=== PATIENT | female | born 1950 | race Caucasian/White ===

== ENCOUNTER → 2018-02-27 | Outpatient (CLI) | payer MEDICARE ==
[~2018-02-27] MED LIST: IOPAMIDOL-370 75 ML VIAL IV ONE
== END | disposition home or self-care (01) ==
LOC: OIH 08:13
PROVIDERS: ATTEND Internal Medicine
DX: R10.31 Right lower quadrant pain (principal); R10.32 Left lower quadrant pain
CPT/HCPCS: 74178; Q9967

== ENCOUNTER → 2018-07-07 | Outpatient (CLI) | payer MEDICARE | END | disposition home or self-care (01) | LOC: RAH 13:03 | PROVIDERS: ATTEND Internal Medicine | DX: Z12.31 Encounter for screening mammogram for malignant neoplasm of breast (principal) | CPT/HCPCS: 77067 ==

== ENCOUNTER → 2018-12-28 | Outpatient (CLI) | payer MEDICARE | END | disposition home or self-care (01) | LOC: RAH 16:24 | PROVIDERS: ATTEND Internal Medicine | DX: M47.816 Spondylosis without myelopathy or radiculopathy, lumbar region (principal); R10.2 Pelvic and perineal pain | CPT/HCPCS: 72100; 72170 ==

== ENCOUNTER → 2019-07-27 | Outpatient (CLI) | payer MEDICARE | END | disposition home or self-care (01) | LOC: RAH 14:47 | PROVIDERS: ATTEND Internal Medicine | DX: Z12.31 Encounter for screening mammogram for malignant neoplasm of breast (principal) | CPT/HCPCS: 77067 ==

== ENCOUNTER → 2019-07-30 | Outpatient (CLI) | payer MEDICARE ==
[~2019-07-30] MED LIST changes: +IOHEXOL-350 50ML VIAL IV ONE; -IOPAMIDOL-370 75 ML VIAL IV ONE
== END | disposition home or self-care (01) ==
LOC: RAH 12:48
PROVIDERS: ATTEND Internal Medicine
DX: J44.9 Chronic obstructive pulmonary disease, unspecified (principal)
CPT/HCPCS: 71260; Q9967

== ENCOUNTER → 2020-08-01 | Outpatient (CLI) | payer MEDICARE | END | disposition home or self-care (01) | LOC: RAH 07-28 13:14 | PROVIDERS: ATTEND Internal Medicine | DX: I25.10 Atherosclerotic heart disease of native coronary artery without angina pectoris (principal); J43.9 Emphysema, unspecified; R91.1 Solitary pulmonary nodule | CPT/HCPCS: 71270; Q9967 ==

== ENCOUNTER → 2020-08-13 | Outpatient (CLI) | payer MEDICARE | END | disposition home or self-care (01) | LOC: RAH 13:19 | PROVIDERS: ATTEND Internal Medicine | DX: Z12.31 Encounter for screening mammogram for malignant neoplasm of breast (principal); N64.89 Other specified disorders of breast | CPT/HCPCS: 77067 ==

== ENCOUNTER → 2022-03-11 | Outpatient (CLI) | payer OTHER, MEDICARE ==
[~2022-03-11] MED LIST changes: -IOHEXOL-350 50ML VIAL IV ONE; +LIDOCAINE HCL MPF 1% 5ML VIAL ONE
[2022-03-11 08:24] LABS: INR 0.96 (0.85-1.15); PROTHROMBIN TIME 10.5 SEC (9.6-11.6)
[2022-03-11 08:25] LABS: PARTIAL THROMBOPLASTIN TIME 31.7 SEC (26.3-35.5)
== END | disposition home or self-care (01) ==
LOC: RAH 07:33
PROVIDERS: ATTEND Internal Medicine
DX: N63.15 Unspecified lump in the right breast, overlapping quadrants (principal); Z79.01 Long term (current) use of anticoagulants
CPT/HCPCS: 19083; 36415; 85610; 85730; A4215 ×3; J3490

== ENCOUNTER → 2022-04-09 | Outpatient (CLI) | payer OTHER, MEDICARE ==
[~2022-04-09] MED LIST changes: +IOHEXOL 350 MG/ML 100ML INFUS..BTL IV ONE; -LIDOCAINE HCL MPF 1% 5ML VIAL ONE
== END | disposition home or self-care (01) ==
LOC: RAH 07:35
PROVIDERS: ATTEND Internal Medicine
DX: I71.2 Thoracic aortic aneurysm, without rupture (principal); I51.7 Cardiomegaly; J43.9 Emphysema, unspecified
CPT/HCPCS: 71275; Q9967

== ENCOUNTER → 2023-03-18 | Outpatient (CLI) | payer OTHER, MEDICARE | END | disposition home or self-care (01) | LOC: RAH 10:37 | PROVIDERS: ATTEND Internal Medicine | DX: N39.0 Urinary tract infection, site not specified (principal) | CPT/HCPCS: 76770 ==

== ENCOUNTER → 2023-03-25 | Outpatient (CLI) | payer OTHER, MEDICARE | END | disposition home or self-care (01) | LOC: RAH 08:48 | PROVIDERS: ATTEND Internal Medicine | DX: Z12.31 Encounter for screening mammogram for malignant neoplasm of breast (principal) | CPT/HCPCS: 77067 ==

== ENCOUNTER → 2023-11-11 | Outpatient (CLI) | payer OTHER, MEDICARE ==
[2023-11-11 15:26] LABS: CREATININE 0.8 mg/dL (0.5-1.5); POTASSIUM 4.1 mmol/L (3.5-5.1)
== END | disposition home or self-care (01) ==
LOC: LAB 13:23
PROVIDERS: ATTEND Internal Medicine Cardiovascular Disease
DX: I34.0 Nonrheumatic mitral (valve) insufficiency (principal)
CPT/HCPCS: 36415; 80048

== ENCOUNTER → 2023-11-17 | Outpatient (CLI) | payer OTHER, MEDICARE | END | disposition home or self-care (01) | LOC: RAH 08:21 | PROVIDERS: ATTEND Internal Medicine Cardiovascular Disease | DX: I71.20 Thoracic aortic aneurysm, without rupture, unspecified (principal) | CPT/HCPCS: 71275; Q9967 ==

== ENCOUNTER → 2023-12-08 | Outpatient (CLI) | payer OTHER, MEDICARE | END | disposition home or self-care (01) | LOC: SHCH 15:10 | PROVIDERS: ATTEND Internal Medicine Cardiovascular Disease | DX: I73.9 Peripheral vascular disease, unspecified (principal) | CPT/HCPCS: 93925 ==

== ENCOUNTER → 2023-12-26 | Outpatient (CLI) | payer OTHER, MEDICARE ==
[2023-12-26] MEDS: REGADENOSON 0.4 MG/5 ML PF SYG IVP ONE (14:48)
== END | disposition home or self-care (01) ==
LOC: SHCH 10:00
PROVIDERS: ATTEND Internal Medicine Cardiovascular Disease
DX: I20.0 Unstable angina (principal)
CPT/HCPCS: 78452; 96374; 93017; J2785; A9500 ×2

== ENCOUNTER → 2024-05-07 | Outpatient (CLI) | payer OTHER, MEDICARE ==
[~2024-05-07] MED LIST changes: +AEC81 PO; +ATOR10TA69 PO; +DIGESTIVE ENZYME PO; -IOHEXOL 350 MG/ML 100ML INFUS..BTL IV ONE; +LEVO100T4 PO; +MONT-39 PO; +OXYB5TAB20 PO; +PANT40TA54 PO; +TRAZ-185 PO; +UMEC1DIS IH; +d mannose PO; +fish oil PO; +magnesium citrate PO; +nasocort NASAL; +one a day PO; +proair IH
== END | disposition home or self-care (01) ==
LOC: RAH 13:37
PROVIDERS: ATTEND Internal Medicine
DX: N60.01 Solitary cyst of right breast (principal); N63.41 Unspecified lump in right breast, subareolar; N63.14 Unspecified lump in the right breast, lower inner quadrant; N64.9 Disorder of breast, unspecified; N64.52 Nipple discharge
CPT/HCPCS: 76641; 77066

== ENCOUNTER 2024-05-08 08:41 | Day surgery (SDC) | payer OTHER, MEDICARE ==
[2024-05-04 12:49] LABS: BASOPHILS # (AUTO) 0.04 K/uL (0.00-0.20); BASOPHILS % (AUTO) 0.7 % (0.0-5.0); EOSINOPHILS # (AUTO) 0.15 K/uL (0.00-0.70); EOSINOPHILS % (AUTO) 2.6 % (0.0-8.0); HEMATOCRIT 39.7 % (36-48); IMMATURE GRANULOCYTE ABSOLUTE 0.01 K/uL (0-1); LYMPHOCYTES % (AUTO) 34.4 % (21.0-51.0); MEAN CORPUSCULAR HEMOGLOBIN 30.3 pg (27.0-33.0); MEAN CORPUSCULAR VOLUME 91.7 fL (79-99); MONOCYTES # (AUTO) 0.4 K/uL (0.1-1.0); MONOCYTES % (AUTO) 7.6 % (3.0-13.0); NEUTROPHILS # (AUTO) 3.1 K/uL (1.8-7.7); NEUTROPHILS % (AUTO) 54.5 % (40.0-77.0); PLATELET COUNT (AUTO) 256 K/uL (130-400); RED BLOOD CELL COUNT(AUTO) 4.33 MIL/uL (4.00-5.50); WHITE BLOOD COUNT (AUTO) 5.8 K/uL (4.8-10.8)
[2024-05-04 12:57] LABS: CREATININE 0.7 mg/dL (0.5-1.0); POTASSIUM 5.1 mmol/L (3.5-5.1)
[2024-05-04 13:00] LABS: INR 0.95 (0.85-1.15); PROTHROMBIN TIME 10.3 SEC (9.6-11.6)
[2024-05-04 13:01] LABS: PARTIAL THROMBOPLASTIN TIME 30.5 SEC (26.3-35.5)
[2024-05-04 13:43] VITALS: BP 148/85; PULSE 66; RESP 19
[2024-05-08] VITALS (7 sets, daily range): BP systolic 133–139; BP diastolic 61–76; PULSE 58–63; RESP 13–15
[~2024-05-08] VITALS: Ht 167.6 cm; Wt 83.6 kg
[2024-05-08] MEDS ORDERED: MIDAZOLAM HCL 1 MG/ML 2ML VIAL ONE (15:03)
[2024-05-08] MEDS ORDERED: HEPARIN 10,000 UNIT/10ML (1,000 UNIT/ML) VIAL ONE (15:04)
[2024-05-08] MEDS ORDERED: IOHEXOL 350 MG/ML 100ML INFUS..BTL IV ONE (15:04)
[2024-05-08] MEDS ORDERED: LIDOCAINE HCL 400MG/20ML VIAL ONE (15:04)
[2024-05-08] MEDS ORDERED: BIVALIRUDIN 250 MG/VIAL IV ONE (15:04)
[2024-05-08] MEDS ORDERED: FENTANYL CITRATE PF 50 MCG/1 ML 2ML VIAL ONE (15:04)
[2024-05-08] MEDS ORDERED: NITROGLYCERIN 0.4 MG SL TAB SL PRN (16:30)
[2024-05-08] MEDS ORDERED: DEXTROSE 50%-WATER 50 ML DISP.SYRIN IV PRN (16:30)
[2024-05-08] MEDS ORDERED: 0.9%NACL 1000ML 1,000 ML IV SCH (16:30)
[2024-05-08] MEDS ORDERED: GLUCAGON 1MG KIT 1 MG ML IM PRN (16:30)
[2024-05-08] MEDS ORDERED: METOPROLOL TARTRATE 1 MG/ML 5ML VIAL IV PRN (16:30)
[2024-05-08] MEDS ORDERED: HYDRALAZINE 20MG/ML VIAL IV PRN (16:30)
== END 2024-05-08 18:15 | disposition home or self-care (01) ==
LOC: DAH 08:41
PROVIDERS: ATTEND Internal Medicine Cardiovascular Disease
DX: R07.9 Chest pain, unspecified (principal); R06.09 Other forms of dyspnea; I20.9 Angina pectoris, unspecified; I10 Essential (primary) hypertension; J44.9 Chronic obstructive pulmonary disease, unspecified; E78.5 Hyperlipidemia, unspecified; E03.9 Hypothyroidism, unspecified; K21.9 Gastro-esophageal reflux disease without esophagitis; F41.9 Anxiety disorder, unspecified; F32.A Depression, unspecified; I34.0 Nonrheumatic mitral (valve) insufficiency; I71.20 Thoracic aortic aneurysm, without rupture, unspecified; Z87.891 Personal history of nicotine dependence; Z90.49 Acquired absence of other specified parts of digestive tract; Z98.51 Tubal ligation status; Z79.899 Other long term (current) drug therapy
CPT/HCPCS: 80048; 85025; 85610; 85730; 36415; 71045; 93005; 93460; 96360; 96361; C1894 ×3; C1760 ×2; J3010; J3490; J1644 ×2; J2250; Q9967; A4215; A4222; A4221; A4663; A4216; A4606; A4223 ×3; 99156; 99157; J0583

== ENCOUNTER → 2024-06-07 | Outpatient (CLI) | payer OTHER, MEDICARE | END | disposition home or self-care (01) | LOC: RAH 14:46 | PROVIDERS: ATTEND Internal Medicine | DX: M47.22 Other spondylosis with radiculopathy, cervical region (principal); M48.02 Spinal stenosis, cervical region | CPT/HCPCS: 72040 ==

== ENCOUNTER → 2024-09-13 | Outpatient (CLI) | payer OTHER, MEDICARE ==
--- NOTE | 2024-09-13 14:33 | HMCIMG ---
SHOULDER COMP 2+VWS RT HISTORY: Right shoulder pain COMPARISON: None TECHNIQUE: 2 images of right shoulder were obtained. FINDINGS: There is no acute displaced fracture or dislocation. Degenerative changes are seen. IMPRESSION: 1. Findings as described above.
== END | disposition home or self-care (01) ==
LOC: RAH 13:39
PROVIDERS: ATTEND Internal Medicine
DX: M19.011 Primary osteoarthritis, right shoulder (principal); M25.511 Pain in right shoulder
CPT/HCPCS: 73030

== ENCOUNTER → 2024-10-05 | Outpatient (CLI) | payer OTHER, MEDICARE ==
--- NOTE | 2024-10-05 09:27 | HMCIMG ---
Exam Type: MRI OF THE CERVICAL SPINE WITHOUT GADOLINIUM Clinical Information: PAIN Comparison: None Technique: Sagittal T1 and T2 FSE, Sagittal STIR and Sagittal proton density images were completed through the cervical spine. Axial T1, T2 and proton density images were also acquired. FINDINGS: There is straightening of the spine consistent with spasm. No fractures or dislocations are identified. Vertebral body height and disc height is preserved at all levels. The bone marrow signal is normal for age. The spinal canal contents are preserved. The paraspinal muscles and other tissues show no significant abnormalities. Evaluation of the cervical spine by level: C1-C2: There is no spinal canal stenosis. No disc herniation or bulge is noted. There is no neural foraminal stenosis, impingement, or narrowing. C2-C3: There is no spinal canal stenosis. No disc herniation or bulge is noted. There is no neural foraminal stenosis, impingement, or narrowing. C3-C4: Mild central zone disc protrusion without cord compression or nerve root impingement. Mild spinal canal stenosis. C4-C5: Mild central zone disc protrusion without cord compression or nerve root impingement. Mild spinal canal stenosis. C5-C6: Mild central zone disc protrusion without cord compression or nerve root impingement. Mild spinal canal stenosis. C6-C7: There is no spinal canal stenosis. No disc herniation or bulge is noted. There is no neural foraminal stenosis, impingement, or narrowing. C7-T1: There is no spinal canal stenosis. No disc herniation or bulge is noted. There is no neural foraminal stenosis, impingement, or narrowing. Impression: Cervical spasm. Mild central zone disc protrusions without cord compression or nerve root impingement at C3-4, C4-5 and C5-6.
--- NOTE | 2024-10-05 10:22 | HMCIMG ---
Exam Type: MR SHOULDER RIGHT WO Clinical Information: PAIN Comparison: None Technique: The examination is done with sagittal T1 and inversion recovery sequences, axial GRE sequence and coronal inversion recovery, proton density and T2 weighted [id number] sequences. FINDINGS: There is a full thickness tear of the rotator cuff tendon supraspinatus component without retraction. The rest of the rotator cuff tendon structures are preserved. Subchondral cyst is noted within the humeral head at the rotator cuff tendon insertion. The acromioclavicular joint is hypertrophic. The coracoclavicular and coracohumeral ligaments are intact. The biceps anchor is well seen, without significant tears. The biceps tendon runs in the bicipital groove without significant high signal intensity to suggest sprain. No displacement is seen from the groove itself. The structures of the labrum are intact; specifically, there is no evidence of SLAP tear. No significant abnormalities of the posterior, inferior, or inferior labral structures are seen either. No paralabral cysts are seen. The superior, middle, and inferior glenohumeral ligaments are intact. Glenohumeral joint cartilage is preserved. There is no evidence of chondromalacia. No loose intra-articular chondroid bodies are identified. The osseous structures of the shoulder joint to include the visualized segments of humeral head, neck, and shaft as well as the glenoid bone itself, the acromion, the coracoid, portions of the scapula and the distal portion of the clavicle are intact. The supraglenoid notch is clear without evidence of space occupying lesions or tumor. The structures of the joint capsule are preserved. The limited examination of the deltoid and the limited visualized portions of the pectoralis major are intact. IMPRESSION: 1. ROTATOR CUFF TENDON TEAR.
== END | disposition home or self-care (01) ==
LOC: RAH 07:41
PROVIDERS: ATTEND Internal Medicine
DX: M48.02 Spinal stenosis, cervical region (principal); M75.101 Unspecified rotator cuff tear or rupture of right shoulder, not specified as traumatic; M54.12 Radiculopathy, cervical region; M75.91 Shoulder lesion, unspecified, right shoulder; M50.222 Other cervical disc displacement at C5-C6 level
CPT/HCPCS: 72141; 73221

== ENCOUNTER → 2024-10-15 | Outpatient (CLI) | payer OTHER, MEDICARE ==
--- NOTE | 2024-10-15 10:32 | HMCIMG ---
PROCEDURE: MAMMO DX UNILATERAL RIGHT, US BREAST COMPLETE UNILATERAL HISTORY: Solitary cyst of right breast COMPARISON: 05/07/2024 TECHNIQUE: Right breast digital diagnostic mammogram with CAD was performed. Additional cone compression views of right breast were obtained. Right breast ultrasound was performed. FINDINGS: The breasts are heterogeneously dense, which may obscure small masses. Note is again made of nodular density with surgical clip near the retroareolar region of the right breast in the lower inner quadrant. This was biopsied previously. Cystic mass with solid component is seen in this area on the ultrasound study measuring 2.1 x 2.2 x 2.6 cm. The nodular component has slightly decreased in size from previous study. There is also small right breast cyst at 5:00 measuring 4 x 3 x 3 mm. Multiple right axillary lymph nodes are seen measuring 15 x 7 x 11 mm and 11 x 4 mm each. There is no evidence of a dominant mass, or suspicious microcalcification. There is no evidence of nipple retraction or skin thickening. IMPRESSION: 1. Stable right breast cystic structure with the nodular focus with surgical clip unchanged. Please see pathology report. Six-month follow-up study is recommended. BI-RADS: CATEGORY 3: PROBABLE BENIGN-SHORT INTERVAL FOLLOWUP SUGGESTED Recommend monthly self breast exam as well as annual clinical examination. A negative x-ray should not delay biopsy if a dominant or clinically suspicious mass is present, since 8-10% of cancers are not identified by mammography. Dense breasts particularly, may obscure an underlying neoplasm. Some of these may be detected clinically and therefore, clinical examination is an essential part of breast evaluation.
== END | disposition home or self-care (01) ==
LOC: RAH 09:04
PROVIDERS: ATTEND Internal Medicine
DX: N60.01 Solitary cyst of right breast (principal); N63.14 Unspecified lump in the right breast, lower inner quadrant; R92.331 Mammographic heterogeneous density, right breast; Q83.1 Accessory breast
CPT/HCPCS: 76641; 77065

== ENCOUNTER → 2025-02-12 | Outpatient (CLI) | payer OTHER, MEDICARE ==
--- NOTE | 2025-02-12 09:25 | HMCIMG ---
BONE DENSITOMETRY: HISTORY: UNSPECIFIED MENOPAUSAL ABD PERIMENOPAUSAL DISORDER Comparison: none FINDINGS: BMD measured at AP spine L1-L4 is 1.164 g/cm2 with a T-score of 1.1 Bone density is up to 10% below young normal. This patient is considered normal according to WHO criteria. Fracture risk is low. BMD measured at Left Femoral Neck is 0.930 g/cm2 with a T-score of 0.7 Bone density is up to 10% below young normal. This patient is considered normal according to WHO criteria. Fracture risk is low. BMD measured at Left Femoral Total is 0.973 g/cm2 with a T-score of 0.3 Bone density is up to 10% below young normal. This patient is considered normal according to WHO criteria. Fracture risk is low. IMPRESSION: Normal bone mineral density.
== END | disposition home or self-care (01) ==
LOC: RAH 07:45
PROVIDERS: ATTEND Internal Medicine
DX: N95.9 Unspecified menopausal and perimenopausal disorder (principal)
CPT/HCPCS: 77080

== ENCOUNTER → 2025-05-08 | Outpatient (CLI) | payer OTHER, MEDICARE ==
--- NOTE | 2025-05-08 10:32 | HMCIMG ---
Right BREAST ULTRASOUND: This is a 75-year-old female who has right breast biopsy performed 3 years ago with benign finding. Patient is here for follow-up ultrasound and the diagnostic mammogram. Finding: Real-time examination of the [right/left] breast demonstrates homogeneous echotexture throughout the breast right breast at 6:00 there is a large cyst measuring 2.4 x 2.4 x 2.5 cm. There is a polypoid-like lesion as compared to prior ultrasound from 10/15/2024 this lesion has increased in size. At present it measures 1.1 x 1.0 cm... Prior ultrasound measures approximately 0.75 x 0.4 cm. It appears to be protruding in the cystic cavity. The remaining right breast has no other lesion seen. There is benign appearing axillary lymph node measuring 3.2 x 0.6 x 0.7 cm with fatty hilum. IMPRESSION: Right breast cyst at 6:00 with a complex intracystic mass which has increased in size. I would recommend a repeat biopsy to evaluate the lesion. CATEGORY 4: SUSPICIOUS ABNORMALITY. BIOPSY SHOULD BE CONSIDERED Recommend monthly self breast exam as well as annual clinical examination. A negative x-ray should not delay biopsy if a dominant or clinically suspicious mass is present, since 8-10% of cancers are not identified by mammography. Dense breasts particularly, may obscure an underlying neoplasm. Some of these may be detected clinically and therefore, clinical examination is an essential part of breast evaluation.
--- NOTE | 2025-05-08 10:39 | HMCIMG ---
DIGITAL right breast DIAGNOSTIC MAMMOGRAM Technique: The digital mammographic examination of right breast in craniocaudal, mediolateral oblique views along with CAD was obtained. Ultrasound of the right breast was also performed. History: This is a 75 years year-old female 3, para1 Ab2 . Patient has no family history of breast cancer. Patient has no complaint Reference:Prior study from 10/15/2024, 05/07/2024 are available.. Breast composition: Breast composition C: The breasts are heterogeneously dense, which may obscure small masses. Finding: The digital mammographic examination of right breast in craniocaudal and mediolateral oblique view along with CAD demonstrates to be moderately heterogeneously dense. In the right breasts near retroareolar region at 6:00 there is a large round density with calcification which ultrasound demonstrate to be a cyst. Previously measures 2.5 x 2.8 cm. Present the lesion has increased in size measuring 3.0 x 3.3 x 3.1 cm. Ultrasound demonstrate intracystic mass which is also increased in size even that of prior biopsy was benign. The lesion has more than doubled in size and appears to be polypoid fungating mass. I would recommend a repeat biopsy.. There is no evidence of any dendritic mass, cluster microcalcification or architectural distortion. The retromammary fat appears to be normal. IMPRESSION: Right breast cystic lesion with intracystic mass which has increased in size as compared to prior study. I would recommend a ultrasound guided biopsy. For further evaluation. FINAL ASSESSMENT: ACR: BI-RAD -4. Suspicious: Finding(s) without all the characteristics morphology of breast cancer but indicatingadefine probability of being malignant: biopsy should be considered. NOTE: IF A WORK-UP OF THIS PATIENT LEADS TO A BIOPSY, PLEASE FORWARD A COPY OF THE PATHOLOGY REPORT TO OUR OFFICE REQUIRED BY [employer] JULY 10, 1994. A NEGATIVE MAMMOGRAM SHOULD NOT PRECLUDE BIOPSY OF A CLINICALLY PALPABLE SUSPICIOUS MASS, 10% OF BREAST CANCERS ARE MAMMOGRAPHICALLY OCCULT. THIS MAMMOGRAPHY FACILITY IS FULLY ACCREDITED BY THE [employer] AND [employer] (FDA). THANK YOU FOR THIS REFERRAL.
== END | disposition home or self-care (01) ==
LOC: RAH 07:31
PROVIDERS: ATTEND Internal Medicine
DX: N60.01 Solitary cyst of right breast (principal); N63.15 Unspecified lump in the right breast, overlapping quadrants; R92.331 Mammographic heterogeneous density, right breast; R92.8 Other abnormal and inconclusive findings on diagnostic imaging of breast
CPT/HCPCS: 76641; 77065

== ENCOUNTER → 2025-06-03 | Outpatient (CLI) | payer OTHER, MEDICARE ==
[2025-06-03 07:58] LABS: INR 0.97 (0.85-1.15)
--- NOTE | 2025-06-03 10:40 | NUR ---
ULTRASOUND GUIDED RIGHT BREAST CYST ASPIRATION PROCEDURE PERFORMED BY DR. TOMMY MOREJON . PUNCTURE SITE RIGHT BREAST AND PATIENT TOLERATED PROCEDURE WELL. BREAST CYST ASPIRATION- 10CC COLLECTED AND SENT TO LAB. END OF PROCEDURE AT 1025. ASPIRATION NEEDLE REMOVED AND BAND-AID DRESSING APPLIED- NO BLEEDING NOTED. DISCHARGE INSTRUCTIONS GIVEN TO PATIENT AND VERBALIZED UNDERSTANDING. PATIENT DISCHARGED AMBULATORY- ALERT WITH NO C/O PAIN.
--- NOTE | 2025-06-03 15:24 | HMCIMG ---
PERCUTANEOUS ULTRASOUND-GUIDED aspiration OF right breast lesion at 4:00 BREAST MASS: CLINICAL HISTORY: This is a 75 [id number] female with complex cystic lesion measuring 2.64 x 2.55 x 2.78 cm for ultrasound-guided biopsy. This was biopsied previously with placement of a biopsy marker. The risk and benefit was explained to the patient. The risks include bleeding and infection. The patient consented to the procedure. Procedure: Under ultrasound guidance right breast lesion at 4:00 was localized. After sterile prep and drape, 1% Xylocaine was used for local anesthetic. Using 18-gauge needle total of 12 cc of blood tinged fluid was aspirated. Post aspiration 5 cc of air was injected.. The specimen was sent for histology and cell block. Patient tolerated procedure well. IMPRESSION: 1. PERCUTANEOUS ULTRASOUND-GUIDED aspiration OF right breast BREAST WITH SPECIMENS SENT FOR HISTOLOGY AND CELL BLOCK. THE PATIENT TOLERATED PROCEDURE WELL. PATHOLOGY REPORT IS PENDING.
== END ==
LOC: RAH 07:25
PROVIDERS: ATTEND Internal Medicine
DX: N60.01 Solitary cyst of right breast (principal); R92.8 Other abnormal and inconclusive findings on diagnostic imaging of breast; N60.11 Diffuse cystic mastopathy of right breast; N64.9 Disorder of breast, unspecified; I42.9 Cardiomyopathy, unspecified; N39.46 Mixed incontinence; K21.9 Gastro-esophageal reflux disease without esophagitis; I70.0 Atherosclerosis of aorta; E78.2 Mixed hyperlipidemia; E03.9 Hypothyroidism, unspecified; F32.A Depression, unspecified; M19.90 Unspecified osteoarthritis, unspecified site; J44.89 Other specified chronic obstructive pulmonary disease; E66.3 Overweight; Z68.25 Body mass index [BMI] 25.0-25.9, adult; Z79.01 Long term (current) use of anticoagulants; Z90.49 Acquired absence of other specified parts of digestive tract; Z87.891 Personal history of nicotine dependence; Z79.82 Long term (current) use of aspirin; Z79.890 Hormone replacement therapy; Z79.899 Other long term (current) drug therapy; Z98.890 Other specified postprocedural states
CPT/HCPCS: 19000; 85610; 85730; 36415; 88108; 88305; 76942; A4215 ×2; 19083